=== PATIENT | male | born 1985 ===

== ENCOUNTER 2016-06-14 15:02 | Inpatient (IN) | payer MEDICAID ==
[2016-06-14] MEDS ORDERED: Ondansetron INJ* 2 MG/ML VIAL IV PRN ×2 (17:26→21:59)
--- NOTE | 2016-06-14 18:20 | PN ---
Progress Note - Progress Note Note: Swab specimen collected from draining site supraumbilical puncture wound and sent for GS/C&S.
[2016-06-14] MEDS ORDERED: Iohexol 300* (CONTRAST) 10 ML SDV IV ONE (18:33)
--- NOTE | 2016-06-14 19:30 | RAD ---
INDICATION: Abdominal wall abscess. COMPARISON: Comparison is made with a prior outside ultrasound of the abdomen from June 14, 2016. TECHNIQUE: A CT scan of the abdomen and pelvis was performed with intravenous and without oral contrast following intravenous injection of 150 ml of Omnipaque 300 nonionic contrast. Contiguous axial sections were obtained from the lung bases through the symphysis pubis. Images were reconstructed in the coronal and sagittal planes. FINDINGS: There is mild dependent bilateral lower lobe subsegmental atelectasis. No pleural effusion is present. There is bilateral gynecomastia. The liver and spleen are moderately enlarged. The liver is decreased in attenuation consistent with fatty infiltration. No significant focal abnormality is seen. No calcified gallstones are present. The pancreas appears to be within normal limits. The kidneys and adrenal glands are normal in size. No hydronephrosis is seen. No significant focal renal abnormality is seen. The aorta is normal in caliber and demonstrates homogeneous contrast opacification. No significant enlarged retroperitoneal lymph nodes are seen. The stomach, small and large bowel appear nondistended. The appendix is within normal limits. There is moderate descending and sigmoid diverticulosis without evidence for diverticulitis. There is no evidence for colitis. There is a focal fluid collection present in the subcutaneous tissues of the anterior abdominal wall in the midline in the periumbilical region measuring 6.5 x 4.6 x 6.1 cm. There is a small amount of air present within the collection. There is a faintly visualized wall and this would be most consistent with an abscess. There is stranding in the surrounding subcutaneous tissues consistent with adjacent inflammatory change. No free intraperitoneal air or fluid is seen. No significant focal osseous abnormality is seen. IMPRESSION: 1. THERE IS AIR-FLUID COLLECTION IN THE SUBCUTANEOUS TISSUES IN THE PERIUMBILICAL REGION MOST CONSISTENT WITH AN ABSCESS. 2. HEPATOSPLENOMEGALY AND HEPATIC STEATOSIS.
[2016-06-14] MEDS: Piperac/Tazob 3.375 gm in NS* 3.375 GM/100 ML BAG IVPB SCH (19:32)
[2016-06-14] MEDS ORDERED: Midazolam* 1 MG/ML 2 ML VIAL (2 MG) ONE (19:41)
[2016-06-14] MEDS ORDERED: fentaNYL* 50 MCG/ML 2 ML VIAL (100 MCG VIAL) ONE ×2 (19:41)
--- NOTE | 2016-06-14 19:46 | HP ---
HISTORY AND PHYSICAL: DATE OF ADMISSION: 06/14/16 CHIEF COMPLAINT: Abdominal wall abscess. HISTORY OF PRESENT ILLNESS: Mr. Shamar Wyman is a 30-year-old male who was admitted to [facility] on 06/13/16 with a chief complaint of swelling and pain around the umbilicus, which started 10 days prior. He was apparently seen at [facility] in [place] in the emergency room and he had been discharged with oral and topical clindamycin. He was given an IV dose of clindamycin but was unable to obtain his oral medications and presented to the emergency room at [facility] on June 13 with white blood cell count of 14.3. He was placed on IV Zosyn and because of concern for an abscess , he was sent for abdominal wall ultrasound and that showed a 4.7 x 5.1 x 5.6 cm deep abscess in the abdominal wall. His physician Dr. Wagoner contacted Dr. Murdock from [facility] and the patient was transferred directly from [facility] to [facility] for surgical evaluation. According to Dr. Murdock, Dr. Wagoner had performed a needle aspiration of the site and there was some brownish drainage noted. The patient denies fevers. He reports chills and rigors. He complains of exquisite tenderness of the umbilical region. He denies nausea or vomiting. He had an episode of diarrhea yesterday, no constipation. He has had a recent cough over the past 2 days. He does report a history of abscess on his "tailbone" in the past. PAST MEDICAL HISTORY: 1. Pilonidal cyst. 2. Severe obesity. 3. Gastroesophageal reflux disease. PAST SURGICAL HISTORY: Incision and drainage of pilonidal cyst. HOME MEDICATIONS: 1. Ibuprofen p.r.n. 2. Tylenol p.r.n. 3. Tums p.r.n. ALLERGIES: ALEVE causes rash. FAMILY HISTORY: Mother is alive, has hypertension, back problems. Father is alive, has history of stroke. SOCIAL HISTORY: He denies alcohol or drug use. He is a opql-gaii-p-day smoker for 14 years. He works in a restaurant. He is . REVIEW OF SYSTEMS: Constitutional: He has no fevers, has chills. Reports 2- pound weight loss. Respiratory: Recent cough, nonproductive. He has no history of bronchitis, pneumonia, or asthma. Cardiovascular: No chest pain, no shortness of breath, no palpitations, no dyspnea on exertion. GI: Has GERD. Denies inflammatory bowel diseases, hepatitis, gallbladder problems, ulcer disease, constipation. Diarrhea as above. : No history of hematuria, dysuria, kidney stones, or urinary tract infections. Endocrine: Denies thyroid disease or diabetes. Hematologic: Denies easy bruising, easy bleeding , or blood clots. Integumentary: Denies any rashes. Has multiple tattoos. Musculoskeletal: Denies any joint swelling or pain. PHYSICAL EXAMINATION GENERAL: The patient is a severely obese, 30-year-old male, lying in the hospital bed in no acute distress. VITAL SIGNS: Temperature 99.5, pulse 87, respirations 18, O2 saturation 100% on room air, blood pressure 148/78. HEENT: Head: Normocephalic and atraumatic. His sclerae anicteric. His mucous membranes are moist. Conjunctivae are pink. There is no otorrhea or rhinorrhea. He has dentition intact. Tongue is midline. Oropharynx not visualized. NECK: Appears symmetrical though he has a neely. I palpate no lymphadenopathy. Trachea is midline. LUNGS: Clear to auscultation bilaterally without wheezes, rales, or rhonchi appreciated. HEART: Regular. S1, S2 with no murmurs, rubs, or gallops appreciated. ABDOMEN: His abdomen is obese. There is a large erythematous area across the midabdomen encompassing the area of the umbilicus and stretching from one iliac crest to the other. There is some vesicle formation periumbilically with some moisture in the umbilical fold with no purulent drainage but there is bright erythema. From this exquisite tenderness, I could not appreciate any fluctuance but the exam is limited to the patient's size as well as the tenderness. EXTREMITIES: Warm with no cyanosis, clubbing, or edema. He has multiple tattoos. There are 2+ bilateral posterior tibial pulses. No calf tenderness. DIAGNOSTIC STUDIES/LAB DATA: Laboratory data from [facility] from 06/14 was reviewed, sodium 138, potassium 4.2, chloride 101, carbon dioxide 28, BUN 9, creatinine 1, glucose 123, calcium 8.3. CBC shows WBC of 13.5, hemoglobin of 14, hematocrit 41.7, platelet count 227. Of note, on 06/13/16, he had a white blood cell count of 14.3 with 10% bands; on 06/14/16 labs he has 0 bands. His ESR from June 13 was 58, his lactate was 1.8. His urinalysis from June 13 was notable for clear yellow urine with a specific gravity of 1.018 and no ketones, nitrites, or leukocyte esterase. Ultrasound reports as noted. IMPRESSION: Shamar Wyman is a 30-year-old male with severe obesity and abdominal wall cellulitis encompassing the periumbilical region with collection noted on ultrasound. He does not appear overtly septic. PLAN/RECOMMENDATIONS: He is admitted to [facility], will be kept n.p.o. in anticipation of needing the OR for drainage of the abscess. We will continue the intravenous Zosyn that was started at [place] while awaiting culture results. He will receive Dilaudid and Toradol as needed for pain. Due to the fact that he last ate at about 4:45 p.m., it may affect the timing of his surgery, as I do think he will need anesthesia due to his level of pain. CT scan was ordered to assess extent of the abscess and aid in surgical planning. [id number]/[facility] #: [id number] JOSÉ
[2016-06-14] MEDS ORDERED: HYDROmorphone* 1 MG/ML 1 ML SYR ONE ×2 (20:35→20:43)
[2016-06-14] MEDS ORDERED: Bupivacaine 0.5% W/EPI SDV* 30 ML VIAL ONE (20:47)
--- NOTE | 2016-06-14 21:09 | SURGPN ---
Brief Operative Note - Surgery Procedures: PREOP DX: ABDOMINAL WALL ABSCESS POSTOP DX: SAME PROC: I&D OF ABOVE SURG: MECENAS ANES: STRINGER/DINESH EBL: 10ML IVF: LR SPEC: ABSCESS FLUID FOR C&S DRAIN: 1/2" HUI COMPL: NONE COND: STABLE TO RR
[2016-06-14] MEDS ORDERED: Acetaminophen TAB* 325 MG PO PRN (21:18)
[2016-06-14] MEDS ORDERED: Calcium Carbonate CHEW TAB* 500 MG (TUMS) PO PRN (21:19)
[2016-06-14] MEDS ORDERED: DiMENhydriNATE IV* 50 MG/ML VIAL IV PUSH PRN (21:59)
[2016-06-14] MEDS ORDERED: PROCHLORPERAZINE INJ 5 MG/ML 2 ML VIAL IV PRN (21:59)
[2016-06-14] MEDS ORDERED: fentaNYL* 50 MCG/ML 2 ML VIAL (100 MCG VIAL) IV PRN (21:59)
[2016-06-14] MEDS ORDERED: HYDROmorphone* 1 MG/ML 1 ML SYR IV PRN (21:59)
[2016-06-14] MEDS ORDERED: Scopolamine 1.5 mg* PATCH TRANSDERM PRN (21:59)
[2016-06-14] MEDS: HYDROmorphone* 1 MG/ML 1 ML SYR IV PRN (23:18)
[2016-06-15] MEDS: Ketorolac INJ* 30 MG/ML 1 ML VIAL IV PRN ×3 (00:59→19:40)
[2016-06-15] MEDS: Piperac/Tazob 3.375 gm in NS* 3.375 GM/100 ML BAG IVPB SCH ×4 (00:59→17:49)
[2016-06-15] MEDS: HYDROmorphone* 1 MG/ML 1 ML SYR IV PRN (04:24)
[2016-06-15 06:59] LABS: Hematocrit 38 % (42-52); Hemoglobin 12.7 g/dl (14.0-18.0); Mean Corpuscular HGB Conc 34 g/dl (31-36); Mean Corpuscular Hemoglobin 29 pg (27-31); Mean Corpuscular Volume 88 fL (80-94); Mean Platelet Volume 9 um3 (7.4-10.4); Red Blood Count 4.33 10^6/ul (4.0-5.4); Red Cell Distribution Width 13 % (10.5-15); White Blood Count 18.5 10^3/ul (3.5-10.8)
--- NOTE | 2016-06-15 09:22 | PN ---
Progress Note - Progress Note SOAP: Subjective: Pain is better. He can sit up. No more chills. Had BM and eating ok. Discussed surgical findings. Objective: Vital Signs Temp 97.4 F 06/15/16 07:33 Pulse 46 06/15/16 07:33 Resp 17 06/15/16 07:33 BP 102/54 06/15/16 07:33 Pulse Ox 97 06/15/16 07:33 Intake & Output 06/14/16 06/15/16 06/15/16 18:59 06:59 18:59 Intake Total 3773 Output Total 830 Balance 2943 Weight 313 lb 323 lb Intake: IV Fluids 3313 LR 813 lr 2500 IVPB 100 ABX - ZOSYN 100 Oral 360 Output: Urine 830 Abd: Dressing saturated; erythema decr. Wound with packing and [place] intact. Less tender. Laboratory Results - last 24 hr 06/15/16 06:18 WBC 18.5 H RBC 4.33 Hgb 12.7 L Hct 38 L MCV 88 MCH 29 MCHC 34 RDW 13 Plt Count 205 MPV 9 Neut % (Auto) 92.6 H Lymph % (Auto) 4.8 L [place] % (Auto) 2.5 Eos % (Auto) 0 Baso % (Auto) 0.1 Absolute Neuts (auto) 17.1 H Absolute Lymphs (auto) 0.9 L Absolute Monos (auto) 0.5 Absolute Eos (auto) 0 Absolute Basos (auto) 0 Absolute Nucleated RBC 0 Nucleated RBC % 0 Microbiology 06/14/16 20:35 Skin and Soft Tissue MRSA/MSSA (PCR - Final Wound - Abdominal Mrsa Negative S.aureus Negative Gram Stain - Final 06/14/16 17:25 Skin and Soft Tissue MRSA/MSSA (PCR - Final Abdomen Mrsa Negative S.aureus Negative Gram Stain - Final Assessment: Abdominal wall abscess s/p I&D. Cellulitis improving. Prelim cx shows polymicrobial infxn. Plan: Cont IV abx at least 24 more hrs. He will need po abx at discharge. D/c packing tomorrow. Leave [place] (looped around umbilical stalk).
[2016-06-15] MEDS: diPHENhydraMINE IV* 50 MG/ML 1 ml VIAL (BENADRYL) IV PRN ×2 (11:22→17:55)
[2016-06-15 18:48] LABS: BUN/Creatinine Ratio 19.8 (8-20); Calcium 9.1 mg/dL (8.6-10.3); EGFR African American 118.3 (>60); Potassium 3.8 mmol/L (3.5-5.0)
[2016-06-16] MEDS: Piperac/Tazob 3.375 gm in NS* 3.375 GM/100 ML BAG IVPB SCH ×2 (00:26→05:32)
[2016-06-16] MEDS: HYDROmorphone* 1 MG/ML 1 ML SYR IV PRN ×3 (00:26→08:05)
[2016-06-16] MEDS: diPHENhydraMINE IV* 50 MG/ML 1 ml VIAL (BENADRYL) IV PRN (05:24)
[2016-06-16 07:42] VITALS: BP 123/73
[2016-06-16] MEDS: Ketorolac INJ* 30 MG/ML 1 ML VIAL IV PRN (08:05)
[2016-06-16] MEDS ORDERED: oxyCODONE/Acetamin 5/325 MG* TAB PO PRN (11:07)
--- NOTE | 2016-06-17 02:41 | DS ---
DISCHARGE SUMMARY: DATE OF ADMISSION: 06/14/16 DATE OF DISCHARGE: 06/16/16 PRINCIPAL ADMITTING DIAGNOSIS: Abdominal wall abscess. OPERATIONS ON THIS ADMISSION: Incision and drainage of abdominal wall abscess. HOSPITAL COURSE: The patient is a 30-year-old male transferred over from [facility] with fever of 104 and abdominal abscess. He had a CT scan which showed there is no intraabdominal component. He was taken to the operating room in the evening of 06/14/16, where he underwent an incision and drainage of large complex abdominal wall abscess. He had a Tori drain placed and had cultures taken. He was placed on Zosyn. He gradually defervesced over the next 24 hours and by the following morning, his fever was down. His pain was under better control. The cellulitis was subsiding. The culture still was not back but he will be discharged home on Augmentin and will follow up in the [place] office on 06/17/16. CC: Yosvany Murdock MD; Dr. Piero Wagoner* [id number]/[facility] #: [id number] [facility] SYSTEMHalle
[2016-06-17] MEDS ORDERED: Scopolomine PATCH Remove* 1 NOTE MISC PATCH OFF ONE (22:04)
--- NOTE | 2016-06-21 04:03 | OP ---
DATE OF OPERATION: 06/14/16 - ROOM #340 DATE OF : 85 SURGEON: Jude Dinero MD SHIPPING COORDINATOR: None. ANESTHESIOLOGIST: Dr. Bowles. ANESTHESIA: General endotracheal. PRE-OP DIAGNOSIS: Abdominal wall abscess. POST-OP DIAGNOSIS: Abdominal wall abscess. OPERATIVE PROCEDURE: Incision and drainage of abdominal wall abscess. ESTIMATED BLOOD LOSS: Minimal. IV FLUIDS: Crystalloids. SPECIMEN: Abscess fluid for culture and sensitivity. DRAINS: Half-inch [place]. COMPLICATIONS: None. COUNTS: The instrument, needle, and sponge counts were correct. DESCRIPTION OF PROCEDURE: The patient was brought to the operating room, placed on the table supine. Sequential compression devices were placed on both lower extremities. General anesthesia was administered. The abdomen was prepped and draped in the usual sterile fashion. Time-out was performed. An 11-blade scalpel was used to incise the skin in the infraumbilical region where the abscess was pointing. Copious amounts of foul-smelling brownish purulent fluid was forthcoming, and this was suctioned from the site. Cultures were sent. Probing of the wound revealed that it encircled the stalk of the umbilicus. In order to achieve adequate drainage, a second counter-incision was made at the superior aspect in the umbilicus. Copious lavage was then performed and a half-inch Tori drain was then placed encircling the umbilical stalk with the two ends exiting the inferior incision. The [place] drain was sutured at two sites with 3-0 Surgipro. Due to oozing from the wounds , a half-inch plain packing was placed into each wound to achieve hemostasis, then dressings were applied. The patient tolerated the procedure well. He was extubated and transferred to Recovery in a stable condition. [id number]/[facility] #: [id number] [facility] CAMPUSHalle
== END 2016-06-16 13:25 | disposition home or self-care (01) | DRG 603 ==
LOC: SSU 16:55
PROVIDERS: ADMIT Surgery; ATTEND Surgery
PROC: 0J9800Z Drainage of Abdomen Subcutaneous Tissue and Fascia with Drainage Device, Open Approach (ICD-10-PCS; principal; 2016-06-14 19:45)
DX: L02.211 Cutaneous abscess of abdominal wall (principal); E66.9 Obesity, unspecified; K21.9 Gastro-esophageal reflux disease without esophagitis; F17.210 Nicotine dependence, cigarettes, uncomplicated; Z68.37 Body mass index [BMI] 37.0-37.9, adult; Z79.1 Long term (current) use of non-steroidal anti-inflammatories (NSAID); Z79.899 Other long term (current) drug therapy; Z88.6 Allergy status to analgesic agent; Z82.49 Family history of ischemic heart disease and other diseases of the circulatory system; Z82.3 Family history of stroke
CPT/HCPCS: 36415; 74177; 80048; 83735; 85025; 87070; 87073; 87076; 87077; 87186; 87205; 87640; 87641; 93005; 94760; A9270-GY; J1170; J1200; J1885; J2250; J2543; J3010; Q9967